=== PATIENT | female | born 1955 | race African-American/Black ===

== ENCOUNTER → 2016-10-18 | Day surgery (SDC) | payer BC ==
[~2016-10-18] MED LIST: ACET325T9 PO; ANAS1TAB3 PO; FENTANYL PF 100 MCG/2 ML VIAL. IV PRN; HEPARIN PF 500 UNIT/5 ML DISP.SYRIN. IV ONE; HYDR-2666 PO; IBUP200T58 PO; IV RINGERS,LACTATED 1000ML 1,000 ML IV SCH; LIDOCAINE 1% 1 ML SYRINGE. ID PRN; LOPE2TAB27 PO; MIDAZOLAM HCL 2 MG/2 ML VIAL. IV PRN; MULT1TAB52 PO; ONDA8TAB9 PO; PROPOFOL 0 ML IV ONE
--- NOTE | 2016-10-18 09:32 | PDOC1 ---
HISTORY & PHYSICAL H&P Elysia Lemon [id number] 1955 10/01/2016 10:45 AM 07/25 [employer] [facility] OUR PATIENTS [facility] [address] [place] [address] Ph. [phone] Patient: Elysia Parsons Date of : 1955 Date: 10/01/2016 10:45 AM Visit Type: Consult This 61 year old female presents for Diarrhea and Screening colonoscopy. History of Present Illness: 1. Diarrhea Stool frequency: 3 to 4 times a day. The describes it as loose and watery. Pertinent negatives include abdominal pain, bloating, fever, vomiting and weight loss. Additional information: Has been having diarrhea for a while. Tamoxifen was discontinued and had been put on newer meds but still has it and now not on any meds. 2. Screening colonoscopy No prior screening. Denies risk factors. Associated symptoms include diarrhea. Pertinent negatives include abdominal pain, change in bowel habits, change in stool caliber, constipation, decreased appetite, melena, nausea, rectal bleeding, vomiting, weight gain and weight loss. Additional information : No family history of colon cancer, No family history of Crohn's/colitis, No NSAID/ASA use and Never had prior colonoscopy. INTAKE COMMENTS: Intake Comments: Nurse Note: the pt is here today with complaints of diarrhea, the pt states that she is on a chemo drug that she thinks is what is causing the diarrhea. The pt states that she has not had any prior colon screening done. PROBLEM LIST: No active problems PAST MEDICAL/SURGICAL HISTORY (Detailed) Disease/disorder Onset Date Management Date Comments Hysterectomy, total, removal of both tubes and ovaries Cholecystectomy Mastectomy, left breast Cancer, breast Allergies: Ingredient Reaction Medication Name Comment NO KNOWN ALLERGIES REVIEW OF SYSTEMS System Neg/Pos Details Constitutional Negative Chills, fever, malaise, weight gain and weight loss. ENMT Negative Sore throat. Eyes Negative Double vision. Respiratory Negative Dyspnea and wheezing. Cardio Negative Chest pain and irregular heartbeat/palpitations. GI Positive Diarrhea, See HPI. GI Negative Abdominal pain, bloating, change in bowel habits, change in stool caliber, constipation, decreased appetite, melena, nausea, see HPI, rectal bleeding and vomiting. Negative Dysuria and hematuria. Endocrine Negative Cold intolerance and heat intolerance. Psych Negative Anxiety. Integumentary Negative Hives and rash. MS Negative Joint pain. Walod/Lymph Negative Easy bleeding and easy bruising. Allergic/Immuno Negative Food allergies. VITAL SIGNS Time BP mm/Hg Pulse /min Resp /min Temp F Ht ft Ht in Ht cm Wt lb Wt kg BMI kg/ m2 BSA m2 O2 Sat% 10:55 AM 128/76 100 97.9 5.0 4.00 162.56 139.80 63.412 24.00 97 Time Measured by 10:55 AM Marcella Haddad PHYSICAL EXAM: Exam Findings Details Constitutional Normal Well developed. Eyes Normal Conjunctiva - Right: Normal, Left: Normal. Sclera - Right: Normal, Left: Normal. Nasopharynx Normal Lips/teeth/gums - Normal. Neck Exam Normal Inspection - Normal. Thyroid gland - Normal. Respiratory Normal Inspection - Normal. Auscultation - Normal. Cardiovascular Normal Regular rate and rhythm. No murmurs, gallops, or rubs. Vascular Normal Pulses - Carotids: Normal, Femoral: Normal, Dorsalis pedis: Normal. Abdomen Normal Inspection - Normal. Anterior palpation - No guarding. No abdominal tenderness. No hepatic enlargement. No splenic enlargement. No hernia. No Ascites. Skin Normal Inspection - Normal. Extremity Normal No edema. Psychiatric Normal Oriented to time, place, person, and situation. Appropriate mood and effect. The patient was checked out at 10:59 AM by Marcella Haddad. Assessment/Plan # Detail Type Description 1. Assessment Functional diarrhea (K59.1). Patient Plan Could be due to medication. Still has symptoms after discontinuing the meds. Other causes to be excluded. Could be IBS. Plan Orders Further diagnostic evaluations ordered today include(s) Colonoscopy to be performed today. She is to schedule a follow-up visit with Flores Agrawal MD upon completion of work-up 2. Assessment Encounter for screening colonoscopy (Z12.11). Patient Plan schedule colonoscopy at [facility] Provider Plan Never had colonoscopy before and due to current symptoms and history of breast ca and her Age, colonoscopy is definitely indicated and recommended. Electronically signed by: Flores Agrawal MD 10/01/2016 12:08 PM Document generated by: Flores Agrawal 10/01/2016 12:08 PM Kely Nicole MD, Family Practice; Lopez Mayberry MD Internal Medicine; Jerry Mcgarry MD, Internal Medicine; Jose Agrawal MD Internal Medicine; Flores Agrawal MD, Gastroenterology; Mario Casillas MD, Rheumatology, S. Bradley Butt, Physical Medicine/Katyaab Po Talavera APRN ------ 10/18/16 Patient seen and examined. No change in H&P. FLORES AGRAWAL MD Oct 18, 2016 09:32
--- NOTE | 2016-10-18 11:09 | PDOC4 ---
GI OP Report - Dr. Adkins Date/Time DATE: 10/18/16 TIME: 11:08 Attending Physician Lawrence Adkins MD Referring Physician Eric Avery MD Indications Chronic diarrhea Pre-Op See the Anesthesia note for documentation of the administered medications Procedures Colonoscopy Findings - Diverticulosis in the sigmoid colon. Plan - Discharge patient to home. - Patient has a contact number available for emergencies. The signs and symptoms of potential delayed complications were discussed with the patient. Return to normal activities tomorrow. Written discharge instructions were provided to the patient. - Resume regular diet. - Continue present medications. - Repeat colonoscopy in 10 years for surveillance. - Return to my office as needed. LAWRENCE ADKINS MD Oct 18, 2016 11:09
[2016-10-18 11:35] VITALS: BP 111/67
== END | disposition home or self-care (01) ==
LOC: ENDOS 08:58
PROVIDERS: ATTEND Internal Medicine Gastroenterology
DX: K57.30 Diverticulosis of large intestine without perforation or abscess without bleeding (principal); E66.9 Obesity, unspecified; M19.90 Unspecified osteoarthritis, unspecified site; Z90.710 Acquired absence of both cervix and uterus; Z87.39 Personal history of other diseases of the musculoskeletal system and connective tissue; Z90.49 Acquired absence of other specified parts of digestive tract; Z85.3 Personal history of malignant neoplasm of breast; Z87.440 Personal history of urinary (tract) infections
CPT/HCPCS: J2704

== ENCOUNTER → 2017-11-14 | Outpatient (CLI) | payer OTHER ==
[2017-11-14 14:51] LABS: ADD MAN DIFF? NO
[2017-11-14 15:02] LABS: BASO % 0 % (0-3); EOS # 0.1 x10^3/uL (0.0-0.7); EOS % 1 % (0-3); HEMATOCRIT 35.2 % (36.0-47.0); HEMOGLOBIN 12.1 g/dL (12.0-15.5); LYMPH # 2.6 x10^3/uL (1.0-4.8); LYMPH % 23 % (24-48); MEAN CORPUSCULAR HEMOGLOBIN 34 pg (25-35); MEAN CORPUSCULAR HGB CONC 34 g/dL (31-37); MEAN CORPUSCULAR VOLUME 100 fL (79-100); MONO # 0.6 x10^3/uL (0.0-1.1); MONO % 5 % (0-9); NEUT % 70 % (31-73); PLATELET COUNT 224 x10^3/uL (140-400); RED BLOOD COUNT 3.54 x10^6/uL (3.50-5.40); RED CELL DISTRIBUTION WIDTH 13.4 % (11.5-14.5); WHITE BLOOD COUNT 11.4 x10^3/uL (4.0-11.0)
[2017-11-14 15:18] LABS: ALBUMIN 3.7 g/dL (3.4-5.0); ALBUMIN/GLOBULIN RATIO 1.1 (1.0-1.7); ALK PHOS 87 U/L (46-116); ALT (SGPT) 28 U/L (14-59); ANION GAP 7 (6-14); AST (SGOT) 23 U/L (15-37); BLOOD UREA NITROGEN 19 mg/dL (7-20); BUN/CREATININE RATIO 19 (6-20); CALCIUM 9.4 mg/dL (8.5-10.1); CARBON DIOXIDE 27 mmol/L (21-32); CHLORIDE 109 mmol/L (98-107); GFR 67.8; GLUCOSE 94 mg/dL (70-99); POTASSIUM 3.9 mmol/L (3.5-5.1); SODIUM 143 mmol/L (136-145); TOTAL BILIRUBIN 0.3 mg/dL (0.2-1.0)
[2017-11-17 07:50] LABS: CA 27.29 35.4 U/mL (0.0-38.6)
== END | disposition home or self-care (01) ==
LOC: LAB 14:24
DX: C50.912 Malignant neoplasm of unspecified site of left female breast (principal); Z17.0 Estrogen receptor positive status [ER+]
CPT/HCPCS: 80053; 85025

== ENCOUNTER → 2017-11-29 | Day surgery (SDC) | payer OTHER ==
[~2017-11-29] MED LIST changes: -ACET325T9 PO; -ANAS1TAB3 PO; -FENTANYL PF 100 MCG/2 ML VIAL. IV PRN; -HEPARIN PF 500 UNIT/5 ML DISP.SYRIN. IV ONE; -HYDR-2666 PO; +HYDROmorphone 2 MG/ML VIAL IV; -IBUP200T58 PO; -IV RINGERS,LACTATED 1000ML 1,000 ML IV SCH; -LIDOCAINE 1% 1 ML SYRINGE. ID PRN; +LIDOCAINE 1% PF 2 ML VIAL. ID; +LIDOCAINE 2% PF Vial for OR 5 ML VIAL.; -LOPE2TAB27 PO; -MIDAZOLAM HCL 2 MG/2 ML VIAL. IV PRN; +MORPHINE SULFATE 4 MG/ML DISP.SYRIN. IV; -MULT1TAB52 PO; -ONDA8TAB9 PO; +ONDANSETRON PF 4 MG/2 ML VIAL. IV; +PROCHLORPERAZINE 10 MG/2 ML VIAL. IV; -PROPOFOL 0 ML IV ONE; +PROPOFOL 20 ML IV; +fentaNYL PF VIAL 100 MCG/2 ML VIAL IV
[2017-11-29] MEDS: IV RINGERS,LACTATED 1000ML 1,000 ML IV (07:34)
== END | disposition home or self-care (01) ==
LOC: ENDOS 06:49
DX: K26.9 Duodenal ulcer, unspecified as acute or chronic, without hemorrhage or perforation (principal); K29.50 Unspecified chronic gastritis without bleeding; K31.89 Other diseases of stomach and duodenum; Z85.3 Personal history of malignant neoplasm of breast; Z90.710 Acquired absence of both cervix and uterus; Z90.12 Acquired absence of left breast and nipple; Z90.49 Acquired absence of other specified parts of digestive tract; Z90.722 Acquired absence of ovaries, bilateral; Z90.79 Acquired absence of other genital organ(s); Z79.899 Other long term (current) drug therapy; G62.89 Other specified polyneuropathies; E66.9 Obesity, unspecified; Z87.440 Personal history of urinary (tract) infections; M19.90 Unspecified osteoarthritis, unspecified site
CPT/HCPCS: 43239; 88305; 88342; J2704

== ENCOUNTER 2018-01-23 09:27 | Day surgery (SDC) | payer OTHER ==
[2018-01-23] MEDS ORDERED: SEVOFLURANE 31 TO 60 MINUTES. IH ×2 (09:36→11:34)
[2018-01-23] MEDS ORDERED: DEXAMETHASONE SOD PHOS 20 MG/5 ML VIAL. (09:37)
[2018-01-23] MEDS ORDERED: fentaNYL PF VIAL 100 MCG/2 ML VIAL (09:37)
[2018-01-23] MEDS ORDERED: PROPOFOL 20 ML IV (09:37)
[2018-01-23] MEDS ORDERED: LIDOCAINE 2% PF Vial for OR 5 ML VIAL. (09:37)
[2018-01-23] MEDS ORDERED: ONDANSETRON PF 4 MG/2 ML VIAL. (09:37)
[2018-01-23] MEDS ORDERED: MIDAZOLAM HCL/PF 2 MG/2 ML VIAL. (09:37)
[2018-01-23 10:05] LABS: ADD MAN DIFF? NO
[2018-01-23 10:10] LABS: BASO % 1 % (0-3); EOS # 0.2 x10^3/uL (0.0-0.7); EOS % 2 % (0-3); HEMATOCRIT 37.8 % (36.0-47.0); HEMOGLOBIN 12.9 g/dL (12.0-15.5); LYMPH # 2.3 x10^3/uL (1.0-4.8); LYMPH % 31 % (24-48); MEAN CORPUSCULAR HEMOGLOBIN 34 pg (25-35); MEAN CORPUSCULAR HGB CONC 34 g/dL (31-37); MEAN CORPUSCULAR VOLUME 100 fL (79-100); MONO # 0.5 x10^3/uL (0.0-1.1); MONO % 7 % (0-9); NEUT # 4.4 x10^3uL (1.8-7.7); NEUT % 59 % (31-73); PLATELET COUNT 211 x10^3/uL (140-400); RED BLOOD COUNT 3.77 x10^6/uL (3.50-5.40); RED CELL DISTRIBUTION WIDTH 13.2 % (11.5-14.5); WHITE BLOOD COUNT 7.4 x10^3/uL (4.0-11.0)
[2018-01-23] MEDS: IV RINGERS,LACTATED 1000ML 1,000 ML IV (10:14)
[2018-01-23] MEDS ORDERED: fentaNYL PF VIAL 100 MCG/2 ML VIAL IV ×4 (10:15→11:45)
[2018-01-23] MEDS ORDERED: MIDAZOLAM HCL/PF 2 MG/2 ML VIAL. IV (10:15)
[2018-01-23] MEDS ORDERED: LIDOCAINE 1% PF 2 ML VIAL. ID ×2 (10:15→11:45)
[2018-01-23 10:26] LABS: ANION GAP 9 (6-14); BLOOD UREA NITROGEN 18 mg/dL (7-20); CALCIUM 9.2 mg/dL (8.5-10.1); CARBON DIOXIDE 26 mmol/L (21-32); CHLORIDE 108 mmol/L (98-107); CREATININE 0.9 mg/dL (0.6-1.0); GFR 76.5; GLUCOSE 103 mg/dL (70-99); POTASSIUM 3.8 mmol/L (3.5-5.1); SODIUM 143 mmol/L (136-145)
[2018-01-23] MEDS ORDERED: IV RINGERS,LACTATED 1000ML 1,000 ML IV (11:35)
[2018-01-23] MEDS ORDERED: PROCHLORPERAZINE 10 MG/2 ML VIAL. IV (11:45)
[2018-01-23] MEDS ORDERED: ONDANSETRON PF 4 MG/2 ML VIAL. IV (11:45)
[2018-01-23] MEDS ORDERED: MORPHINE SULFATE 2 MG/ML DISP.SYRIN. IV (11:45)
[2018-01-23] MEDS: oxyCODONE/APAP 5/325 1 TAB TABLET PO (12:13)
== END 2018-01-23 13:08 | disposition home or self-care (01) ==
LOC: SURG 09:27
DX: Z45.2 Encounter for adjustment and management of vascular access device (principal); C50.912 Malignant neoplasm of unspecified site of left female breast; G62.9 Polyneuropathy, unspecified; Z90.49 Acquired absence of other specified parts of digestive tract; E66.9 Obesity, unspecified; Z90.710 Acquired absence of both cervix and uterus; Z87.440 Personal history of urinary (tract) infections; Z98.890 Other specified postprocedural states; M19.012 Primary osteoarthritis, left shoulder; M19.011 Primary osteoarthritis, right shoulder; M19.042 Primary osteoarthritis, left hand; M19.041 Primary osteoarthritis, right hand
CPT/HCPCS: 36415; 80048; 85025; A7015; J1100; J2001; J2250; J2405; J2704; J3010

== ENCOUNTER → 2018-08-14 | Outpatient (CLI) | payer OTHER ==
[2018-01-23 12:24] VITALS: BP 149/83
[~2018-08-14] MED LIST changes: +ACET325T9 PO; +ANAS1TAB47 PO; +HYDR-2761 PO; -HYDROmorphone 2 MG/ML VIAL IV; +IBUP200T58 PO; -LIDOCAINE 1% PF 2 ML VIAL. ID; -LIDOCAINE 2% PF Vial for OR 5 ML VIAL.; +LOPE2TAB27 PO; -MORPHINE SULFATE 4 MG/ML DISP.SYRIN. IV; +MULT1TAB52 PO; +OMEP40CA5 PO; +ONDA8TAB9 PO; -ONDANSETRON PF 4 MG/2 ML VIAL. IV; +OXYC1TAB15 PO; -PROCHLORPERAZINE 10 MG/2 ML VIAL. IV; -PROPOFOL 20 ML IV; +TAMO20TA PO; -fentaNYL PF VIAL 100 MCG/2 ML VIAL IV
--- NOTE | 2018-08-14 13:53 | KCIC ---
Right breast diagnostic digital mammograms with 3-D tomosynthesis: Reason for examination: History of left breast cancer with mastectomy.. Comparison is made to previous studies dated 05/31/2017 and 04/19/2016. Right breast mammograms in CC and oblique projections were obtained with 2-D imaging and 3-D tomosynthesis imaging on a Siemens Inspiration unit and reviewed on the workstation. Interpretation was made with the benefit of CAD. The skin and nipple show no abnormalities. No abnormal axillary lymph nodes are seen. The breast parenchyma is heterogeneously dense. (Breast density: Category C.) There are no dominant masses, suspicious calcifications or architectural distortion. Impression: No evidence of malignancy. Recommend routine screening. Your patient's mammogram demonstrates that she has dense breast tissue (breast density category C or D), which could hide abnormalities, and if she has other risk factors for breast cancer that have been identified, she might benefit from supplemental screening tests that may be suggested by you as her ordering physician. Dense breast tissue, in and of itself, is a relatively common condition. Therefore, this information is not provided to cause undue concern, but rather to raise your awareness and to promote discussion with your patient regarding the presence of other risk factors, in addition to dense breast tissue. Your patient's mammography results will be sent to her. BI-RAD Category 1: Negative. "Our facility is accredited by the [employer] Mammography Program." This patient's information has been entered into a reminder system for the patient to be notified with the results of her examination and a target date for the next mammogram. Electronically signed by: Melissa Neff MD (08/14/2018 1:49 PM) [id number]
== END | disposition home or self-care (01) ==
LOC: KCIC MAMMO 12:51
PROVIDERS: ATTEND Internal Medicine Hematology & Oncology
DX: Z08 Encounter for follow-up examination after completed treatment for malignant neoplasm (principal); Z85.3 Personal history of malignant neoplasm of breast; Z90.12 Acquired absence of left breast and nipple
CPT/HCPCS: 77065; G0279; 77061

== ENCOUNTER → 2018-09-18 | Outpatient (CLI) | payer OTHER ==
[2018-01-23 12:24] VITALS: BP 149/83
[2018-09-18 11:33] LABS: BASO % 1 % (0-3); EOS # 0.1 x10^3/uL (0.0-0.7); EOS % 2 % (0-3); HEMATOCRIT 37.5 % (36.0-47.0); HEMOGLOBIN 12.6 g/dL (12.0-15.5); LYMPH # 1.5 x10^3/uL (1.0-4.8); LYMPH % 28 % (24-48); MEAN CORPUSCULAR HEMOGLOBIN 34 pg (25-35); MEAN CORPUSCULAR HGB CONC 34 g/dL (31-37); MEAN CORPUSCULAR VOLUME 100 fL (79-100); MONO # 0.5 x10^3/uL (0.0-1.1); MONO % 9 % (0-9); NEUT # 3.1 x10^3uL (1.8-7.7); NEUT % 59 % (31-73); PLATELET COUNT 232 x10^3/uL (140-400); RED BLOOD COUNT 3.76 x10^6/uL (3.50-5.40); RED CELL DISTRIBUTION WIDTH 13.1 % (11.5-14.5); WHITE BLOOD COUNT 5.2 x10^3/uL (4.0-11.0)
[2018-09-18 12:11] LABS: ALBUMIN 3.7 g/dL (3.4-5.0); ALBUMIN/GLOBULIN RATIO 0.9 (1.0-1.7); CALCIUM 9.3 mg/dL (8.5-10.1); CREATININE 1.1 mg/dL (0.6-1.0); GFR 60.5; POTASSIUM 4.4 mmol/L (3.5-5.1); TOTAL BILIRUBIN 0.4 mg/dL (0.2-1.0); TOTAL PROTEIN 7.9 g/dL (6.4-8.2)
== END | disposition home or self-care (01) ==
LOC: LAB 10:52
PROVIDERS: ATTEND Internal Medicine Hematology & Oncology
DX: Z00.6 Encounter for examination for normal comparison and control in clinical research program (principal); C50.912 Malignant neoplasm of unspecified site of left female breast; Z17.0 Estrogen receptor positive status [ER+]
CPT/HCPCS: 36415; 80053; 85025; 86300

== ENCOUNTER → 2019-05-14 | Outpatient (CLI) | payer OTHER ==
[2018-01-23 12:24] VITALS: BP 149/83
[~2019-05-14] MED LIST changes: +OMEP40CA45 PO; -OMEP40CA5 PO
[2019-05-14 12:40] LABS: BASO % 0 % (0-3); EOS # 0.1 x10^3/uL (0.0-0.7); EOS % 1 % (0-3); HEMOGLOBIN 11.9 g/dL (12.0-15.5); LYMPH % 31 % (24-48); MEAN CORPUSCULAR HEMOGLOBIN 33 pg (25-35); MEAN CORPUSCULAR HGB CONC 33 g/dL (31-37); MEAN CORPUSCULAR VOLUME 99 fL (79-100); MONO # 0.4 x10^3/uL (0.0-1.1); MONO % 6 % (0-9); NEUT # 4.1 x10^3/uL (1.8-7.7); NEUT % 62 % (31-73); PLATELET COUNT 214 x10^3/uL (140-400); RED BLOOD COUNT 3.64 x10^6/uL (3.50-5.40); RED CELL DISTRIBUTION WIDTH 13.1 % (11.5-14.5); WHITE BLOOD COUNT 6.5 x10^3/uL (4.0-11.0)
[2019-05-14 13:17] LABS: ALBUMIN/GLOBULIN RATIO 1.2 (1.0-1.7); CALCIUM 9.1 mg/dL (8.5-10.1); GFR 67.5; POTASSIUM 3.5 mmol/L (3.5-5.1); TOTAL BILIRUBIN 0.4 mg/dL (0.2-1.0); TOTAL PROTEIN 7.4 g/dL (6.4-8.2)
== END | disposition home or self-care (01) ==
LOC: LAB 12:19
PROVIDERS: ATTEND Internal Medicine Hematology & Oncology
DX: Z00.6 Encounter for examination for normal comparison and control in clinical research program (principal); C50.912 Malignant neoplasm of unspecified site of left female breast; Z17.0 Estrogen receptor positive status [ER+]
CPT/HCPCS: 36415; 80053; 85025; 86300

== ENCOUNTER → 2019-08-20 | Outpatient (CLI) | payer OTHER ==
[2018-01-23 12:24] VITALS: BP 149/83
--- NOTE | 2019-08-20 14:08 | KCIC ---
Right breast diagnostic digital mammograms with 3-D tomosynthesis: Reason for examination: History of left breast cancer with mastectomy. Routine follow-up of the right breast. Comparison is made to previous studies dated 08/14/2018 and 05/31/2017. Right breast mammograms in CC and oblique projections were obtained with 2-D imaging and 3-D tomosynthesis imaging on a Siemens Inspiration unit and reviewed on the workstation. Interpretation was made with the benefit of CAD. The skin and nipple show no abnormalities. No abnormal axillary lymph nodes are seen. The breast parenchyma is heterogeneously dense. (Breast density: Category C.) There are no dominant masses, suspicious calcifications or architectural distortion. Impression: No evidence of malignancy. Recommend routine screening. Your patient's mammogram demonstrates that she has dense breast tissue (breast density category C or D), which could hide abnormalities, and if she has other risk factors for breast cancer that have been identified, she might benefit from supplemental screening tests that may be suggested by you as her ordering physician. Dense breast tissue, in and of itself, is a relatively common condition. Therefore, this information is not provided to cause undue concern, but rather to raise your awareness and to promote discussion with your patient regarding the presence of other risk factors, in addition to dense breast tissue. Your patient's mammography results will be sent to her. BI-RAD Category 1: Negative. "Our facility is accredited by the [employer] Mammography Program." This patient's information has been entered into a reminder system for the patient to be notified with the results of her examination and a target date for the next mammogram. Electronically signed by: Melissa Neff MD (08/20/2019 2:05 PM) [id number]
== END | disposition home or self-care (01) ==
LOC: KCIC MAMMO 09:31
PROVIDERS: ATTEND Internal Medicine Hematology & Oncology
DX: R92.2 Inconclusive mammogram (principal); Z85.3 Personal history of malignant neoplasm of breast; Z90.12 Acquired absence of left breast and nipple
CPT/HCPCS: 77065; G0279; 77061

== ENCOUNTER → 2020-10-21 | Outpatient (CLI) | payer BC, OTHER ==
[2018-10-16 08:35] VITALS: BP 152/72
[~2020-10-21] MED LIST changes: +MULT-445 PO; -MULT1TAB52 PO; +NYST15CR2 TP; +SULF1TAB24 PO
--- NOTE | 2020-10-21 13:40 | KCIC ---
EXAM: Right breast diagnostic mammogram with tomosynthesis. HISTORY: 65-year-old female with history of left breast cancer, status post left mastectomy, presents for annual mammography. TECHNIQUE: Full-field digital craniocaudal, true lateral and mediolateral oblique 2D and 3D tomosynth esis images of the right breast are obtained for evaluation. Computer aided detection was applied. COMPARISON: 08/20/2019, 08/14/2018, 05/31/2017 BREAST PARENCHYMAL DENSITY: Level C - Heterogeneously dense. FINDINGS: There is no new suspicious mass, microcalcification or region of architectural distortion. There is stable asymmetry within the central aspect of the right breast. The greater than 3 year cour se of stability favors benignity. There is no new suspicious mammographic finding. IMPRESSION: BI-RADS Category 2: Benign finding(s). RECOMMENDATION: Annual mammography is recommended. If your mammogram demonstrates that you have dense breast tissue, which could hide abnormalities, and if you have other risk factors for breast cancer that have been identified, you might benefit from s upplemental screening tests that may be suggested by your ordering physician. Dense breast tissue, i n and of itself, is a relatively common condition. This information is not provided to cause undue c oncern, but rather to raise your awareness and to promote discussion with your physician regarding th e presence of other risk factors, in addition to dense breast tissue. A report of your mammography re sults will be sent to you and your physician. You should contact your physician if you have any ques tions or concerns regarding this report. Mammography is a sensitive method for finding small breast cancers, but it does not detect them all a nd is not a substitute for careful clinical examination. A negative mammogram does not negate a clin ically suspicious finding and should not result in delay in biopsying a clinically suspicious abnorma lity. PQRS compliance statement - Patient information was entered into a reminder system with a target due date for the next mammogram. "Our facility is accredited by the [employer] Mammography Program." Electronically signed by: Lynn Nolan MD (10/21/2020 1:38 PM) [facility]
== END ==
LOC: KCIC MAMMO 12:38
PROVIDERS: ATTEND Internal Medicine Hematology & Oncology
DX: Z00.6 Encounter for examination for normal comparison and control in clinical research program (principal); C50.612 Malignant neoplasm of axillary tail of left female breast; C50.912 Malignant neoplasm of unspecified site of left female breast; R92.2 Inconclusive mammogram; Z17.0 Estrogen receptor positive status [ER+]
CPT/HCPCS: 77065; G0279; 77061

== ENCOUNTER → 2021-11-25 | Outpatient (CLI) | payer BC ==
[2018-10-16 08:35] VITALS: BP 152/72
[~2021-11-25] MED LIST changes: -OMEP40CA45 PO; +OMEP40CA7 PO
--- NOTE | 2021-11-26 17:01 | KCIC ---
Right digital screening 2-D and 3-D (tomosynthesis) mammogram: Reason for examination: Routine screening. Personal history of breast cancer with left mastectomy. Comparison is made to previous mammograms from 10/21/2020, 08/20/2019, 08/14/2018. Bilateral mammograms in CC and oblique projections were obtained with 2-D imaging and 3-D tomosynthes is imaging and reviewed on the workstation. Findings: Breast density: Category C. The breasts are heterogeneously dense, which may obscure small masses. There are no suspicious masses, malignant appearing calcifications or architectural distortion. Impression: No evidence of malignancy. ASSESSMENT: BI-RADS 1. Recommendations: Routine screening mammograms. This patient's information has been entered into a reminder system for the patient to be notified wit h the results of her examination and a target date for the next mammogram. Your patient's mammogram demonstrates that she has dense breast tissue (breast density category C or D), which could hide abnormalities, and if she has other risk factors for breast cancer that have bee n identified, she might benefit from supplemental screening tests that may be suggested by you as her ordering physician. Dense breast tissue, in and of itself, is a relatively common condition. Therefo re, this information is not provided to cause undue concern, but rather to raise your awareness and t o promote discussion with your patient regarding the presence of other risk factors, in addition to d ense breast tissue. Electronically signed by: Edith Khan MD (11/26/2021 4:58 PM) [id number]
== END ==
LOC: KCIC MAMMO 12:38
PROVIDERS: ATTEND Internal Medicine Hematology & Oncology
DX: Z12.31 Encounter for screening mammogram for malignant neoplasm of breast (principal)
CPT/HCPCS: 77063; 77067